=== PATIENT | male | born 1975 | race African-American/Black ===

== ENCOUNTER 2019-03-06 14:18 | Emergency (ER) | payer MEDICAID, OTHER ==
[~2019-03-06] VITALS: Ht 195.6 cm; Wt 133.8 kg
--- NOTE | 2019-03-06 14:35 | NUR ---
PATIENT IS AWAKE AND ALERT. PLACED IN A ROOM NEAR NURSES STATION. SECURITY WAS AT BEDSIDE WITH METAL DETECTOR...PATIENTS BELT TAKEN AND SECURED. CALLED FOR SITTER.
[2019-03-06 15:10] LABS: BASOPHILS # (AUTO) 0.1 K/uL (0.0-8.0); BASOPHILS % (AUTO) 1.1 % (0.0-2.0); EOSINOPHILS # (AUTO) 0.1 K/uL (0.0-0.7); EOSINOPHILS % (AUTO) 1.6 % (0.0-7.0); HEMATOCRIT 41.6 % (36.7-47.1); HEMOGLOBIN 13.7 g/dL (12.5-16.3); LYMPHOCYTES # (AUTO) 1.8 K/uL (20.0-40.0); LYMPHOCYTES % (AUTO) 23.1 % (20.5-51.5); MEAN CORPUSCULAR HEMOGLOBIN 28.5 uug (23.8-33.4); MEAN CORPUSCULAR HGB CONC 33 g/dL (32.5-36.3); MEAN CORPUSCULAR VOLUME 86.1 fL (73.0-96.2); MONOCYTES # (AUTO) 0.4 K/uL (2.0-10.0); MONOCYTES % (AUTO) 4.9 % (0.0-11.0); NEUTROPHILS # (AUTO) 5.3 K/uL (1.8-8.9); NEUTROPHILS % (AUTO) 69.3 % (38.5-71.5); PLATELET COUNT (AUTO) 196 K/uL (152-348); RED BLOOD CELL COUNT(AUTO) 4.83 MIL/uL (4.06-5.63); WHITE BLOOD COUNT (AUTO) 7.7 K/uL (3.6-10.2)
[2019-03-06 15:18] LABS: CARBON DIOXIDE 31 mmol/L (21-32); CHLORIDE 101 mmol/L (98-107); CREATININE 1.3 mg/dL (0.6-1.3); GLUCOSE 98 mg/dL (74-106); POTASSIUM 4.1 mmol/L (3.5-5.1); UREA NITROGEN, BLOOD 16 mg/dL (7-18)
[2019-03-06 15:24] LABS: ALANINE AMINOTRANSFERASE 38 U/L (16-63); ALKALINE PHOSPHATASE 78 U/L (50-136); ASPARTATE AMINOTRANSFERASE 22 U/L (15-37); BILIRUBIN,DIRECT 0.1 mg/dL (0.0-0.2); BILIRUBIN,TOTAL 0.3 mg/dL (0.2-1.0); TOTAL PROTEIN, SERUM 7.8 g/dL (6.4-8.2)
[2019-03-06 15:25] LABS: ACETAMINOPHEN < 2.0 ug/mL (10-30)
[2019-03-06 15:26] LABS: ETHANOL < 3 MG/DL (0-0)
--- NOTE | 2019-03-06 15:46 | NUR ---
SITTER AT BEDSIDE. PATIENT IS AWAKE AND ALERT, EATING A SANDWICH
--- NOTE | 2019-03-06 16:18 | NUR ---
WAS TOLD BY CRISIS TEAM THAT PATIENT IS TO GO TO [facility] FOR PSYCHIATRIC INTERVENTION.
--- NOTE | 2019-03-06 16:22 | NUR ---
I CALLED [facility] INTAKE TO PLACE THIS PATIENT AND FAXED NECESSARY PAPERWORK THEY NEEDED
--- NOTE | 2019-03-06 16:46 | NUR ---
AWAITING REVIEW AND PLACEMENT FROM [facility]. PATIENT ATE ANOTHER SANDWICH AND DRANK JUICE.
[2019-03-06 17:09] LABS: *BILIRUBIN,URIN NEGATIVE (NEGATIVE); *BLOOD, URINE NEGATIVE (NEGATIVE); *CLARITY,URINE CLEAR (CLEAR); *COLOR,URINE YELLOW (YELLOW); *KETONES,URINE NEGATIVE (NEGATIVE); *UROBILINOGEN,URINE 0.2 E.U./dl (NORMAL); LEUKOCYTE ESTERASE ,URINE NEGATIVE (NEGATIVE); NITRITE, URINE NEGATIVE (NEGATIVE); UGLUCOSE NEGATIVE (NEGATIVE)
--- NOTE | 2019-03-06 17:22 | NUR ---
[facility] STAFF STATE THEY ARE STILL REVIEWING THIS CASE... PATIENT ATE DINNER.
[2019-03-06 17:23] LABS: *AMPHETAMINE, URINE NEGATIVE (NEGATIVE); *BARBITURATE, URINE NEGATIVE (NEGATIVE); *CANNABINOID, URINE NEGATIVE (NEGATIVE); *COCCAINE, URINE NEGATIVE (NEGATIVE); *OPIATE, URINE NEGATIVE (NEGATIVE); *PHENCYCLIDINE SCREEN,URINE NEGATIVE (NEGATIVE)
--- NOTE | 2019-03-06 19:04 | NUR ---
HAND OFF REPORT GIVEN TO MICHAEL VIRK
--- NOTE | 2019-03-06 19:13 | NUR ---
ASSUMED CARE OF PATIENT. NO ACUTE DISTRESS NOTED. NO SITTER AVAILABLE PER NURSING OFFICE ( INSTRUMENT LENS INSPECTOR JENNY). SECURITY CALLED FOR LEROY SINCE THE PATIENT IS CONSTANTLY ATTEMPTING TO LEAVE HIS ROOM AND IS AN ELOPEMENT RISK.
--- NOTE | 2019-03-06 20:10 | NUR ---
Patient endorsed that he would like to leave. ER MD is aware and states since the patient is not on a hold and is a voluntary admit to psych, he is clear to leave. patient was given verbal ACI as he did not want to wait for MD documentation. Patient d/c home in stable condition. All belongings with patient. Ambulated with stable gait.
[2019-03-06 20:12] VITALS: BP 131/78
== END 2019-03-06 20:12 | disposition home or self-care (01) ==
LOC: ER 14:18
DX: Z04.6 Encounter for general psychiatric examination, requested by authority (principal); R45.851 Suicidal ideations
CPT/HCPCS: 36415; 80048; 80076; 80307; 81001; 85025; 99283; G0480 ×2; G0481; A4663

== ENCOUNTER 2019-06-02 13:52 | Inpatient (IN) | payer BC, MEDICAID, OTHER ==
[~2019-06-02] VITALS: Ht 195.6 cm; Wt 130.6 kg
[2019-06-02] MEDS ORDERED: LORAZEPAM 0.5 MG TABLET PO ONE (14:30)
[2019-06-02] MEDS ORDERED: LORAZEPAM 1 MG TABLET ONE (14:35)
[2019-06-02 14:55] LABS: BASOPHILS # (AUTO) 0.1 K/uL (0.0-8.0); BASOPHILS % (AUTO) 0.6 % (0.0-2.0); EOSINOPHILS % (AUTO) 0.1 % (0.0-7.0); HEMATOCRIT 40.9 % (36.7-47.1); HEMOGLOBIN 13.6 g/dL (12.5-16.3); LYMPHOCYTES # (AUTO) 1.4 K/uL (20.0-40.0); LYMPHOCYTES % (AUTO) 10.3 % (20.5-51.5); MEAN CORPUSCULAR HEMOGLOBIN 28.3 uug (23.8-33.4); MEAN CORPUSCULAR HGB CONC 33 g/dL (32.5-36.3); MONOCYTES # (AUTO) 0.9 K/uL (2.0-10.0); MONOCYTES % (AUTO) 6.6 % (0.0-11.0); NEUTROPHILS # (AUTO) 10.9 K/uL (1.8-8.9); NEUTROPHILS % (AUTO) 82.4 % (38.5-71.5); PLATELET COUNT (AUTO) 176 K/uL (152-348); RED BLOOD CELL COUNT(AUTO) 4.82 MIL/uL (4.06-5.63); WHITE BLOOD COUNT (AUTO) 13.2 K/uL (3.6-10.2)
[2019-06-02 14:57] LABS: BILIRUBIN,DIRECT 0.1 mg/dL (0.0-0.2); BILIRUBIN,TOTAL 0.5 mg/dL (0.2-1.0); POTASSIUM 3.8 mmol/L (3.5-5.1); TOTAL PROTEIN, SERUM 8.2 g/dL (6.4-8.2)
[2019-06-02 14:58] LABS: CREATININE 1.2 mg/dL (0.6-1.3)
[2019-06-02] MEDS ORDERED: LORA-258 PO (15:07)
[2019-06-02] MEDS ORDERED: QUET400T PO (15:07)
[2019-06-02] MEDS ORDERED: BUPR150T5 PO (15:07)
[2019-06-02] MEDS ORDERED: QUET200T PO (15:07)
[2019-06-02 16:32] LABS: *AMPHETAMINE, URINE POSITIVE (NEGATIVE); *BARBITURATE, URINE NEGATIVE (NEGATIVE); *CANNABINOID, URINE NEGATIVE (NEGATIVE); *COCCAINE, URINE NEGATIVE (NEGATIVE); *OPIATE, URINE NEGATIVE (NEGATIVE); *PHENCYCLIDINE SCREEN,URINE NEGATIVE (NEGATIVE)
[2019-06-02] MEDS ORDERED: ASPIRIN EC 325 MG TABLET.DR PO SCH (17:00)
[2019-06-02] MEDS ORDERED: ASPIRIN 325 MG TABLET ONE (17:02)
[2019-06-02] MEDS ORDERED: NITROGLYCERIN 0.4 MG/TAB BOTTLE SL ONE ×2 (17:24→17:30)
--- NOTE | 2019-06-02 17:31 | NUR ---
2nd dose of Nitro 0.4 SL given per pt pain is 8/10, and not changed from 1st dose.
--- NOTE | 2019-06-02 17:38 | NUR ---
#rd dose of nitro 0.4 mg given, pt states chest pain is still 8/10.
[2019-06-02] MEDS ORDERED: HYDROCODONE/APAP 5-325MG TABLET PO ONE (18:00)
[2019-06-02] MEDS ORDERED: NITROGLYCERIN OINT 1 GM PACKET TP ONE ×2 (18:00→18:03)
--- NOTE | 2019-06-02 18:01 | NUR ---
Pt is yelling at staff to come to room then becomes verbally abusive using valger words. Called hospital security to stand by for safety.
[2019-06-02] MEDS ORDERED: HYDROCODONE/APAP 5-325MG TABLET ONE (18:03)
--- NOTE | 2019-06-02 18:07 | NUR ---
Pt refused 2nd EKG and SL, as well as Nitro paste. Dr Rouse made aware.
--- NOTE | 2019-06-02 18:10 | NUR ---
1 to 1 security at the bedside.
--- NOTE | 2019-06-02 19:00 | NUR ---
PT OK TO ADMIT TO TELE RM (PENDING) DX: CHEST PAIN UNDER AARON 1ON1 SITTER AT BEDSIDE RECEIVED HAND OFF AND SBAR FR OUTGOING DAY SHIFT RN
--- NOTE | 2019-06-02 19:56 | NUR ---
HAND OFF AND SBAR GIVEN TO GABY VIRK
--- NOTE | 2019-06-02 21:11 | NUR ---
PT TO TRANSPORT TO TELE PT REFUSED IV INSERTION AT THIS TIME ERMD AWARE NAD RA KEPT WARM DR AND COMFORTABLE [id number] AT BEDSIDE
[2019-06-02 21:30] VITALS: BP 140/76
--- NOTE | 2019-06-02 22:00 | NUR ---
Pt received already in bed at around 2130. Sitter at the door, per patient's request. Pt is AO x 4. Verbally responsive. No skin issues. Vital signs taken and recorded, refused VS to be taken by sitter. RN took VS. All belongings accounted for. Dressed patient in hospital gown. Assessed skin, no skin issues. Informed him of the safety protocols hospitals have for Suicidal patients, no wires in the room. Pt adamantly requesting for phone, per sitter, he will be at bedside when pt uses phone. RN agreed, on condition that patient agrees to verbal contract of safety. Per patient, he does not have suicidal ideation anymore or any plan to do so. He just really need to talk to somebody about his brother passing away 3 weeks ago, and another friend dying a few nights ago. Denies any health history. complains of 4/10 pain. Asked him about chest pain, and he said that he has it intermittently, and not so much at this time. Telemetry monitoring started. Sinus rhythm on tele. Pt was complaining of multiple IV pokes from prior experience, offered male expert IV nurses, but refused. agreed to have RN assigned try. RN tried to insert IV 2x, unable. Informed him that we have multiple nurses in the floor who can assist him in starting an IV, but refused all male staff. Market Development Trainer notified. Awaiting for supervisor wound to come to floor. Pt is stable in time being, but being very needy of RN, refuses help from other staff, and intent on working with RN only. RN clearly sets boundaries, but patient is starting to be manipulative. States.: "If you can't help me, I'll just sleep, I don't need this." Sitter remains monitoring patient for safety. All needs attended, food and multiple juice drinks provided. Will limit pt visits.
[2019-06-02] MEDS ORDERED: MAGNESIUM HYDROXIDE 30 ML LIQUID UDC PO PRN (22:15)
[2019-06-02] MEDS: ENOXAPARIN SODIUM 40 MG/0.4 ML DISP.SYRIN SQ SCH (22:15)
[2019-06-02] MEDS ORDERED: ACETAMINOPHEN 325 MG TABLET PO PRN (22:15)
[2019-06-02] MEDS ORDERED: ZOLPIDEM 5 MG TABLET PO PRN (22:15)
[2019-06-02] MEDS ORDERED: ONDANSETRON 4 MG/2 ML VIAL IV PRN (22:15)
[2019-06-02] MEDS ORDERED: HYDROCODONE/APAP 5-325MG TABLET PO PRN (22:15)
[2019-06-02] MEDS ORDERED: Z GUARD REMEDY PASTE 57 GM TUBE TOP PRN (22:15)
--- NOTE | 2019-06-02 22:30 | NUR ---
RN loader operator supervisor arrived on floor, and went to patient's room. Pt allowed both nurses to continue care with sitter overseeing. RN Sup inserted IV, but unable to. Male charge nurse, RN school lunch monitor, and PICC line nurse came over to try and help, but all were refused. Pt was finally convinced to have a female ER nurse try. Awaiting for ER nurse on the floor.
--- NOTE | 2019-06-03 00:30 | NUR ---
At around 0000, Female ER nurse arrived, patient appears displeased that ER nurse is present, but allows her to try. RN supervisor cloth winding, primary RN and ER nurse are being overseen by sitter. After first attempt, patient started talking with a condescending and doubting tone, but allows second attempt. After insertion, patient's mood changed and is thankful for help. However, after other nurses left, patient wanted the curtains closed as primary RN hooks him up to the fluids. After closing curtain, pt started to talk in a weird voice and starts staring at RN. As RN was reinforcing IV, pt start to put other hand closer. RN dawna away and all needs were attended and curtain opened to sitter. Informed sitter that for medical needs, just ask for help. Patient is made aware that sitter has to always observe him at all times for his safety.
[2019-06-03] MEDS: MORPHINE SULFATE 2 MG/1 ML DISP.SYRIN IV PRN ×2 (01:15→15:16)
[2019-06-03] MEDS: IV NS 1000 ML 1,000 ML IV PRN (01:15)
--- NOTE | 2019-06-03 01:30 | NUR ---
Pt was off tele, RN attending to other needs and informed sitter to check on it and replace leads. Pt started refusing sitter's help and demanding RN's attention again. RN informed sitter that she will be there as soon as she is finished with other patients. After finishing tasks, RN came to the room. Pt immediately requested to draw the curtains, and put his hand inside the blanket. During this time, RN tried to explain the roles of sitters, aides and RN. Informed him that they are allowed to do the things that he needs like put on the telebox, or fetch his food and drinks. For continuity of care, care cannot be interrupted if RN is busy but other staff is able to do it.He needs to allow other people to take care of him, not just the RN. Pt would not hear it, and says: "Im fine I am leaving anyway". RN tried to explain reason for hospitalization and monitoring on telemetry. Pt replied, no I am fine. RN asked if what he meant was he wants to leave against medical advice now, patient said no, I will go in the morning. Pt said, I am tired, leave me alone. Respected patient's wishes and left.
--- NOTE | 2019-06-03 01:40 | NUR ---
RN debone processing supervisor notified of patient's telebox refusal. Yoel Valadez DNP also notified, with no new orders.
--- NOTE | 2019-06-03 01:45 | NUR ---
Eliane came to RN to report that patient is being verbally abusive and sexually inappropriate. RN retread supervisor notified and security was called to reinforce rules and regulations to patient. Security persons spoke to patient who agreed to stop behavior and respect nurses caring for him.
--- NOTE | 2019-06-03 02:30 | NUR ---
No further behaviors noted, pt still awake, talking to himself.
--- NOTE | 2019-06-03 04:30 | NUR ---
Pt still awake. RN checked in with patient regarding his pain status. Pt want RN to close the curtains and informed patient that sitter has to be present in the room, patient upset and stated that he doesn't know why these people are here and why he was visited by 2 security guards. Informed him that everyone is just doing their job to keep him compliant with facility protocols for his own safety. Pt noted with peripheral IV removed. RN asked patient how come it's off, patient started asking RN to close curtain again. Rn became firm and reinforced rules. Pt said he doesnt want to hear anymore and would like to rest. Again, respected patient's wishes and had sitter monitor patient.
--- NOTE | 2019-06-03 06:50 | NUR ---
Per sitter, patient slept shortly after RN left. Patient woke up just now, offered AM meds refused. Lab also came by, patient responded: " You can do it girl, you on my side". Risks and benefits explained for medication refusal, still refused. Will endorse behavior accordingly.
[2019-06-03] MEDS: PANTOPRAZOLE SODIUM 40 MG TABLET.DR PO SCH (06:53)
--- NOTE | 2019-06-03 07:44 | NUR ---
Nurse Notes: received report from the night milagros Estrada RN, patient is without a hep lock, nurse tried, ER nurse placed it during the night. the patient pulled the IV site out. monitor technician sinus rhythm.
[2019-06-03 07:45] LABS: BASOPHILS % (AUTO) 0.1 % (0.0-2.0); EOSINOPHILS % (AUTO) 0.1 % (0.0-7.0); HEMATOCRIT 38.8 % (36.7-47.1); HEMOGLOBIN 12.8 g/dL (12.5-16.3); LYMPHOCYTES # (AUTO) 1.3 K/uL (20.0-40.0); LYMPHOCYTES % (AUTO) 7.7 % (20.5-51.5); MEAN CORPUSCULAR HEMOGLOBIN 28.3 uug (23.8-33.4); MEAN CORPUSCULAR HGB CONC 33 g/dL (32.5-36.3); MEAN CORPUSCULAR VOLUME 85.6 fL (73.0-96.2); MONOCYTES # (AUTO) 1.3 K/uL (2.0-10.0); MONOCYTES % (AUTO) 7.4 % (0.0-11.0); NEUTROPHILS # (AUTO) 14.5 K/uL (1.8-8.9); NEUTROPHILS % (AUTO) 84.7 % (38.5-71.5); PLATELET COUNT (AUTO) 163 K/uL (152-348); RED BLOOD CELL COUNT(AUTO) 4.53 MIL/uL (4.06-5.63)
[2019-06-03 07:57] LABS: WHITE BLOOD COUNT (AUTO) 17.1 K/uL (3.6-10.2)
[2019-06-03 08:11] LABS: CREATININE 1.2 mg/dL (0.6-1.3); MAGNESIUM 1.9 mg/dL (1.8-2.4); PHOSPHOROUS 2.5 mg/dL (2.5-4.9)
[2019-06-03 09:11] LABS: THYROID STIMULATING HORMONE 0.938 mIU/mL (0.358-3.740)
[2019-06-03 11:02] VITALS: BP 121/79
[2019-06-03] MEDS ORDERED: LORAZEPAM 0.5 MG TABLET PO PRN (11:30)
[2019-06-03] MEDS ORDERED: NITROGLYCERIN 0.4 MG/TAB BOTTLE SL PRN (11:30)
[2019-06-03] MEDS: ASPIRIN EC 81 MG TABLET.DR PO SCH (11:51)
[2019-06-03] MEDS: LISINOPRIL 5 MG TABLET PO SCH (11:53)
[2019-06-03] MEDS: METOPROLOL TARTRATE 25 MG TABLET PO SCH ×2 (11:53→21:45)
[2019-06-03 15:00] VITALS: BP 141/66
[2019-06-03 15:39] VITALS: BP 141/66
[2019-06-03] MEDS: buPROPion SR 150 MG TABLET.SA PO SCH (17:00)
--- NOTE | 2019-06-03 18:42 | NUR ---
Nurse Notes: IV was restarted around 1500, left forearm, patient was medicated with Morphine 2 mg IV, patient was able to shower, IV site was covered with plastic during shower, Patient is refusing psych medications, Art FOOD SERVICE CLERK was called, and ordering psych consult. IV is infusing at 75 cc per hour.
--- NOTE | 2019-06-03 18:59 | NUR ---
Nurse Notes: psych floor called, stated to fax facesheet of patient, spoke with Francisco J, patient needs psych consult. Patent is refusing his psych medications.
[2019-06-03] MEDS: ENOXAPARIN SODIUM 40 MG/0.4 ML DISP.SYRIN SQ SCH (21:00)
[2019-06-03 21:37] VITALS: BP 124/93
[2019-06-03] MEDS: ATORVASTATIN 10 MG TABLET PO SCH (21:44)
[2019-06-03] MEDS: QUETIAPINE FUMARATE 200 MG TABLET PO SCH (21:44)
[2019-06-04 05:13] VITALS: BP 133/74
[2019-06-04] MEDS: PANTOPRAZOLE SODIUM 40 MG TABLET.DR PO SCH (06:36)
[2019-06-04 06:56] LABS: BASOPHILS % (AUTO) 0.4 % (0.0-2.0); EOSINOPHILS # (AUTO) 0.2 K/uL (0.0-0.7); EOSINOPHILS % (AUTO) 1.3 % (0.0-7.0); HEMATOCRIT 40.4 % (36.7-47.1); HEMOGLOBIN 13.2 g/dL (12.5-16.3); LYMPHOCYTES # (AUTO) 1.7 K/uL (20.0-40.0); LYMPHOCYTES % (AUTO) 14.6 % (20.5-51.5); MEAN CORPUSCULAR HEMOGLOBIN 28.2 uug (23.8-33.4); MEAN CORPUSCULAR HGB CONC 33 g/dL (32.5-36.3); MEAN CORPUSCULAR VOLUME 86.5 fL (73.0-96.2); MONOCYTES # (AUTO) 0.9 K/uL (2.0-10.0); MONOCYTES % (AUTO) 8.2 % (0.0-11.0); NEUTROPHILS # (AUTO) 8.7 K/uL (1.8-8.9); NEUTROPHILS % (AUTO) 75.5 % (38.5-71.5); PLATELET COUNT (AUTO) 152 K/uL (152-348); RED BLOOD CELL COUNT(AUTO) 4.67 MIL/uL (4.06-5.63); WHITE BLOOD COUNT (AUTO) 11.5 K/uL (3.6-10.2)
[2019-06-04 07:05] LABS: CREATININE 1.1 mg/dL (0.6-1.3); PHOSPHOROUS 2.9 mg/dL (2.5-4.9)
--- NOTE | 2019-06-04 08:00 | NUR ---
RECEIVED PT OUT OF HIS ROOM WALKING AROUND THE UNIT. PT ALERT AND ORIENTED X4. NO ACUTE DISTRESS OR SOB NOTED. PT COOPERATIVE AND PLEASANT. BED IS LOCKED AND IN LOW POSITION. SAFETY MEASURES OBSERVED AND IMPLEMENTED. WILL CONTINUE TO MONITOR FOR SAFETY AND COMFORT.
[2019-06-04] MEDS: QUETIAPINE FUMARATE 200 MG TABLET PO SCH ×2 (09:00→21:00)
[2019-06-04] MEDS: buPROPion SR 150 MG TABLET.SA PO SCH (09:00)
[2019-06-04] MEDS: METOPROLOL TARTRATE 25 MG TABLET PO SCH ×2 (09:00→21:00)
[2019-06-04] MEDS: LISINOPRIL 5 MG TABLET PO SCH (09:00)
[2019-06-04] MEDS: ASPIRIN EC 81 MG TABLET.DR PO SCH (09:18)
[2019-06-04 11:46] VITALS: BP 135/66
--- NOTE | 2019-06-04 13:35 | NUR ---
PT REFUSED ECHO. PT STATED THAT HE FEELS UNCOMFORTABLE HAVING A MALE A TECH.
[2019-06-04 15:52] VITALS: BP 127/75
[2019-06-04 16:14] LABS: *BILIRUBIN,URIN NEGATIVE (NEGATIVE); *BLOOD, URINE NEGATIVE (NEGATIVE); *CLARITY,URINE CLEAR (CLEAR); *COLOR,URINE YELLOW (YELLOW); *KETONES,URINE NEGATIVE (NEGATIVE); *UROBILINOGEN,URINE 0.2 E.U./dl (NORMAL); LEUKOCYTE ESTERASE ,URINE NEGATIVE (NEGATIVE); NITRITE, URINE NEGATIVE (NEGATIVE); PH,URINE 5.5 (5.0-8.0); UGLUCOSE NEGATIVE (NEGATIVE)
[2019-06-04] MEDS: buPROPion 100 MG TABLET PO SCH (17:00)
[2019-06-04] MEDS ORDERED: buPROPion 100 MG TABLET PO SCH (17:00)
--- NOTE | 2019-06-04 18:00 | NUR ---
PT RESTING COMFORTABLY. NO ACUTE DISTRESS OR SOB NOTED. PT ALERT AND ORIENTED X3. PT PLEASANT AND COOPERATIVE. CALL LIGHT WITHIN REACH. BED LOCKED AND IN LOW POSITION. WILL GIVE REPORT ACCORDINGLY.
[2019-06-04 20:45] VITALS: BP 136/84
[2019-06-04] MEDS: ATORVASTATIN 10 MG TABLET PO SCH (21:00)
[2019-06-04] MEDS: ENOXAPARIN SODIUM 40 MG/0.4 ML DISP.SYRIN SQ SCH (21:00)
[2019-06-04] MEDS: IV NS 1000 ML 1,000 ML IV PRN (21:04)
--- NOTE | 2019-06-04 21:17 | NUR ---
PT REFUSED ALL THE MEDICATIONS STATING THAT : "IT WILL MESS UP MY KIDNEYS". ALSO REFUSED THE LOVENOX SHOT STATING THAT, "I DONT NEED TO BE POKED, I AM FINE". PATIENT IN BED NOW, ALLOWED HIM TO REST.
[2019-06-05 04:30] VITALS: BP 130/70
[2019-06-05] MEDS: PANTOPRAZOLE SODIUM 40 MG TABLET.DR PO SCH (06:58)
--- NOTE | 2019-06-05 06:58 | NUR ---
PT SLEPT WELL THROUGH THE NIGHT, NO FURTHER BEHAVIORAL ISSUES, EXCEPT FOR CONTINUED NON COMPLIANCE. PT INITIALLY WANTED TO GO AMA. BUT CHANGED HIS MIND. ACCORDING TO HIM, HE DOES NOT WANT UNNECESSARY MEDICATIONS, HENCE DECLINING ZOFRAN IN AM. HE IS WILLING TO DO THE ECHO, BUT DOES NOT WANT MALE FERTILIZER MIXER. NO CHANGES OVERNIGHT, STABLE. WILL ENDORSE ACCORDINGLY
--- NOTE | 2019-06-05 08:06 | NUR ---
RECEIVED PT IN ROOM. PT ALERT AND ORIENTED X4. NO ACUTE DISTRESS OR SOB NOTED. PT COOPERATIVE AND PLEASANT. BED IS LOCKED AND IN LOW POSITION. SAFETY MEASURES OBSERVED AND IMPLEMENTED. WILL CONTINUE TO MONITOR FOR SAFETY AND COMFORT.
[2019-06-05] MEDS: QUETIAPINE FUMARATE 200 MG TABLET PO SCH (09:00)
[2019-06-05] MEDS: METOPROLOL TARTRATE 25 MG TABLET PO SCH (09:00)
[2019-06-05] MEDS: LISINOPRIL 5 MG TABLET PO SCH (09:00)
[2019-06-05] MEDS: buPROPion 100 MG TABLET PO SCH (09:00)
[2019-06-05] MEDS: ASPIRIN EC 81 MG TABLET.DR PO SCH (09:26)
[2019-06-05 12:00] VITALS: BP 137/74
[2019-06-05] MEDS ORDERED: BUPR100T13 PO (12:12)
[2019-06-05] MEDS ORDERED: METO25TA6 PO (12:12)
[2019-06-05] MEDS ORDERED: LISI-607 PO (12:12)
--- NOTE | 2019-06-05 12:25 | NUR ---
DISCHARGE ORDER RECEIVED PENDING CARDIOLOGY CLEARANCE. PT AWARE. ATTENDING ANESTHESIOLOGIST AWARE. PT ALERT AND ORIENTED X3. NO ACUTE DISTRESS OR SOB NOTED. WILL CONTINUE TO MONITOR FOR SAFETY AND COMFORT.
--- NOTE | 2019-06-05 13:30 | NUR ---
PT LEFT FACILITY AMA WITHOUT SIGNING AMA FORM. PT REMOVED IV BY HIMSELF AND GAVE INTACT CATHETER TO ASSISTANT. DR SALMON AWARE, COMPUTER DESIGNER REBECCA AWARE, IP LITIGATION PARALEGAL MICHELLE AWARE, CHARGE NURSE NINA AWARE, NURSING ICU NURSE JOHANA AWARE.
== END 2019-06-05 13:20 | disposition left against medical advice (07) | DRG 203 ==
LOC: ER 13:57 → TELE3 20:59 → MEDSURG3 06-03 18:32
PROVIDERS: ADMIT Hospitalist; ATTEND Hospitalist
DX: R07.89 Other chest pain (principal); F25.9 Schizoaffective disorder, unspecified; R00.0 Tachycardia, unspecified; E66.9 Obesity, unspecified; D72.829 Elevated white blood cell count, unspecified; F15.10 Other stimulant abuse, uncomplicated; F43.10 Post-traumatic stress disorder, unspecified; Z79.899 Other long term (current) drug therapy; Z91.14 Patient's other noncompliance with medication regimen; Z68.34 Body mass index [BMI] 34.0-34.9, adult; Z76.5 Malingerer [conscious simulation]; Z91.19 Patient's noncompliance with other medical treatment and regimen
CPT/HCPCS: 36415; 70030-TC; 71045; 80307; 83735; 84100; 84443; 85025; 85730; 87086; 93005; A4663; G0378; G0480; J2270; J2405

== ENCOUNTER 2019-07-30 02:37 | Emergency (ER) | payer BC ==
[~2019-07-30] VITALS: Ht 195.6 cm; Wt 131.5 kg
--- NOTE | 2019-07-30 02:50 | NUR ---
Dr. Christian at bedside for MSE
--- NOTE | 2019-07-30 02:54 | NUR ---
Patient ambulating with steady gait. A&O x4. c/o sharp chest pain that radiates to the back 8/10 on the pain scale. Patient states pain started 45 min COORDINATOR CARDIOPULMONARY SERVICES. Patient also states that he took x1 dose of Nitro SL COORDINATOR CARDIOPULMONARY SERVICES. Speech is clear and able to make needs known / follow commands. Breathing even and unlabored. Denies any cough, SOB, Dizziness, blurred vision. Denies any / GI discomfort.
[2019-07-30] MEDS ORDERED: NITROGLYCERIN 0.4 MG/TAB BOTTLE SL ONE ×2 (03:00→03:07)
--- NOTE | 2019-07-30 03:16 | NUR ---
Patients VS prior to giving Nitro SL BP: 146 /60 P:105 RR:18 O2:97% on RA
--- NOTE | 2019-07-30 03:16 | NUR ---
2nd dose of Nitro SL given per MD orders d/t patient stating chest pain unrelieved. 8/10 on the pain scale per patient
[2019-07-30] MEDS ORDERED: ASPIRIN 325 MG TABLET ONE (03:25)
--- NOTE | 2019-07-30 03:26 | NUR ---
Patient states CP "better" now. 7/10 on the pain scale. 3rd dose of Nitro SL given VS as follows: BP: 145/83 P: 102 RR:18 O2 sat: 97% on RA
[2019-07-30] MEDS ORDERED: ASPIRIN 325 MG TABLET PO ONE (03:30)
--- NOTE | 2019-07-30 03:31 | NUR ---
Patient states CP "still the same". 7/[address] on the pain scale. Dr. Christian made aware. No new orders received
[2019-07-30 03:33] LABS: BASOPHILS % (AUTO) 0.4 % (0.0-2.0); EOSINOPHILS # (AUTO) 0.1 K/uL (0.0-0.7); EOSINOPHILS % (AUTO) 0.7 % (0.0-7.0); HEMATOCRIT 39.8 % (36.7-47.1); HEMOGLOBIN 13.3 g/dL (12.5-16.3); LYMPHOCYTES # (AUTO) 1.9 K/uL (20.0-40.0); LYMPHOCYTES % (AUTO) 27.2 % (20.5-51.5); MEAN CORPUSCULAR HGB CONC 34 g/dL (32.5-36.3); MEAN CORPUSCULAR VOLUME 83.7 fL (73.0-96.2); MONOCYTES # (AUTO) 0.5 K/uL (2.0-10.0); MONOCYTES % (AUTO) 6.6 % (0.0-11.0); NEUTROPHILS # (AUTO) 4.6 K/uL (1.8-8.9); NEUTROPHILS % (AUTO) 65.1 % (38.5-71.5); PLATELET COUNT (AUTO) 248 K/uL (152-348); RED BLOOD CELL COUNT(AUTO) 4.75 MIL/uL (4.06-5.63)
[2019-07-30 03:39] LABS: CREATININE 1.2 mg/dL (0.6-1.3); POTASSIUM 3.8 mmol/L (3.5-5.1)
[2019-07-30 03:50] LABS: BILIRUBIN,DIRECT 0.1 mg/dL (0.0-0.2); BILIRUBIN,TOTAL 0.4 mg/dL (0.2-1.0); TOTAL PROTEIN, SERUM 8.1 g/dL (6.4-8.2)
--- NOTE | 2019-07-30 04:19 | NUR ---
Attempted to obtain VS. Patient declined. explained risks / benefits. Patient still declined. Dr. Christian made aware
--- NOTE | 2019-07-30 04:19 | NUR ---
Re-assessed patient's CP. Patient declined to answer. Patient does not want to answer any questions at this time
--- NOTE | 2019-07-30 05:15 | NUR ---
Patient declined repeat EKG. Dr. Christian at bedside explained risks / benefits, patient still declined
--- NOTE | 2019-07-30 05:31 | NUR ---
Patient does not wish to proceed with medical care recommended by Dr. Christian. Patient given information related to possible complications, up to and including , which could occur as a result of leaving the hospital at this time. Patient verbalizes understanding of risks involved due to leaving against medical advice. Patient has signed AMA form. Patient ambulating with steady gait. NAD noted
[2019-07-30 05:35] VITALS: BP 142/81
== END 2019-07-30 05:31 | disposition left against medical advice (07) ==
LOC: ER 02:40
DX: R07.89 Other chest pain (principal); R06.02 Shortness of breath; R11.10 Vomiting, unspecified; M25.512 Pain in left shoulder; Z79.899 Other long term (current) drug therapy
CPT/HCPCS: 36415; 70030-TC; 71045; 85025; 93005; A4663

== ENCOUNTER 2019-08-08 18:58 | Emergency (ER) | payer BC ==
[~2019-08-08] VITALS: Ht 195.6 cm; Wt 130.2 kg
--- NOTE | 2019-08-08 19:20 | NUR ---
PATIENT WAS MSE BY DR BARAHONA IN ROOM 03A.
[2019-08-08 19:39] LABS: BASOPHILS # (AUTO) 0.1 K/uL (0.0-8.0); BASOPHILS % (AUTO) 0.9 % (0.0-2.0); EOSINOPHILS # (AUTO) 0.2 K/uL (0.0-0.7); EOSINOPHILS % (AUTO) 3.5 % (0.0-7.0); HEMATOCRIT 41.1 % (36.7-47.1); HEMOGLOBIN 13.7 g/dL (12.5-16.3); LYMPHOCYTES % (AUTO) 43.3 % (20.5-51.5); MEAN CORPUSCULAR HEMOGLOBIN 28.4 uug (23.8-33.4); MEAN CORPUSCULAR HGB CONC 33 g/dL (32.5-36.3); MONOCYTES # (AUTO) 0.5 K/uL (2.0-10.0); MONOCYTES % (AUTO) 7.1 % (0.0-11.0); NEUTROPHILS # (AUTO) 3.1 K/uL (1.8-8.9); NEUTROPHILS % (AUTO) 45.2 % (38.5-71.5); PLATELET COUNT (AUTO) 243 K/uL (152-348); RED BLOOD CELL COUNT(AUTO) 4.83 MIL/uL (4.06-5.63); WHITE BLOOD COUNT (AUTO) 6.8 K/uL (3.6-10.2)
--- NOTE | 2019-08-08 19:39 | NUR ---
PATIENT REFUSED EKG. DR BARAHONA MADE AWARE.
[2019-08-08 19:54] LABS: ALANINE AMINOTRANSFERASE 53 U/L (16-63); ALKALINE PHOSPHATASE 107 U/L (50-136); ASPARTATE AMINOTRANSFERASE 41 U/L (15-37); BILIRUBIN,DIRECT 0.2 mg/dL (0.0-0.2); BILIRUBIN,TOTAL 0.4 mg/dL (0.2-1.0); CARBON DIOXIDE 24 mmol/L (21-32); CHLORIDE 103 mmol/L (98-107); CREATININE 1.3 mg/dL (0.6-1.3); GLUCOSE 92 mg/dL (74-106); POTASSIUM 3.7 mmol/L (3.5-5.1); TOTAL PROTEIN, SERUM 8.5 g/dL (6.4-8.2); UREA NITROGEN, BLOOD 18 mg/dL (7-18)
[2019-08-08 19:56] LABS: ACETAMINOPHEN < 2.0 ug/mL (10-30)
[2019-08-08 20:02] LABS: ETHANOL 43 MG/DL (0-0)
--- NOTE | 2019-08-08 20:14 | NUR ---
PATIENT WAS MEDICALLY CLEARED BY DR LOPEZ. SPANN FROM CRISIS TEAM CALLED WILL COME EVALUATE PATIENT.
--- NOTE | 2019-08-08 21:00 | NUR ---
Patient is resting comfortably in bed with eyes closed. 1 to 1 secuirty at bedside. Will continue to monitor patient safety
--- NOTE | 2019-08-08 21:15 | NUR ---
PATIENT WAS SEEN BY MARIA INES FROM CRISIS TEAM FOR EVAL AT BEDSIDE. PATIENT WAS NO PACED FOR HOLD. DR BARAHONA MADE AWARE.
--- NOTE | 2019-08-08 21:35 | NUR ---
RESOURCE GIVEN FOR MENTAL HEALTH. IF HIS SYMPTOMS RESUME AGAIN OR GET WORSE
[2019-08-08 21:45] VITALS: BP 118/74
--- NOTE | 2019-08-08 21:45 | NUR ---
Patient discharged to home in stable condition. Patient no c/o pain. Not verbalizing any SI at this time feels much better said he will follow up with PMD and resources given. Written and verbal after care instructions given. Patient verbalizes understanding of instructions. All belongings sent with patient.
== END 2019-08-08 21:45 | disposition home or self-care (01) ==
LOC: ER 18:58
DX: F32.9 Major depressive disorder, single episode, unspecified (principal); F25.9 Schizoaffective disorder, unspecified; F43.10 Post-traumatic stress disorder, unspecified
CPT/HCPCS: 99285; 36415; 71045; 80048; 80076; 80307; 80329; 85025; G0480; 93005; A4663

== ENCOUNTER 2019-11-15 21:41 | Inpatient (IN) | payer BC ==
[~2019-11-15] VITALS: Ht 195.6 cm; Wt 134.7 kg
[2019-11-15] MEDS ORDERED: NITR0.4T SL (21:49)
--- NOTE | 2019-11-15 21:50 | NUR ---
Dr. Cifuentes at bedside for MSE.
[2019-11-15] MEDS ORDERED: ASPIRIN 81 MG TAB.CHEW PO ONE (22:00)
[2019-11-15] MEDS ORDERED: HYDROCODONE/APAP 10-325 MG TABLET PO ONE (22:00)
[2019-11-15] MEDS ORDERED: NITROGLYCERIN OINT 1 GM PACKET TP ONE ×2 (22:00→22:09)
[2019-11-15] MEDS ORDERED: ONDANSETRON ODT 4 MG TAB.RAPDIS SL ONE (22:00)
[2019-11-15] MEDS ORDERED: NITROGLYCERIN 0.4 MG/TAB BOTTLE SL ONE ×2 (22:00→22:09)
[2019-11-15] MEDS ORDERED: ASPIRIN 81 MG TAB.CHEW ONE (22:08)
[2019-11-15] MEDS ORDERED: ONDANSETRON ODT 4 MG TAB.RAPDIS ONE ×2 (22:08→23:56)
[2019-11-15] MEDS ORDERED: HYDROCODONE/APAP 10-325 MG TABLET ONE ×2 (22:09→23:56)
--- NOTE | 2019-11-15 22:10 | NUR ---
Pt refused IV, made aware.
--- NOTE | 2019-11-15 22:11 | NUR ---
Xray at bedside.
[2019-11-15 22:15] LABS: BASOPHILS # (AUTO) 0.1 K/uL (0.0-8.0); BASOPHILS % (AUTO) 0.8 % (0.0-2.0); EOSINOPHILS % (AUTO) 0.5 % (0.0-7.0); HEMATOCRIT 39.2 % (36.7-47.1); HEMOGLOBIN 12.9 g/dL (12.5-16.3); LYMPHOCYTES # (AUTO) 1.2 K/uL (20.0-40.0); MEAN CORPUSCULAR HEMOGLOBIN 28.3 uug (23.8-33.4); MEAN CORPUSCULAR HGB CONC 33 g/dL (32.5-36.3); MONOCYTES # (AUTO) 0.4 K/uL (2.0-10.0); MONOCYTES % (AUTO) 5.7 % (0.0-11.0); NEUTROPHILS # (AUTO) 5.4 K/uL (1.8-8.9); PLATELET COUNT (AUTO) 202 K/uL (152-348); RED BLOOD CELL COUNT(AUTO) 4.56 MIL/uL (4.06-5.63); WHITE BLOOD COUNT (AUTO) 7.2 K/uL (3.6-10.2)
[2019-11-15 22:17] LABS: CREATININE 1.4 mg/dL (0.6-1.3); POTASSIUM 4.1 mmol/L (3.5-5.1)
[2019-11-15 22:30] LABS: BILIRUBIN,DIRECT 0.1 mg/dL (0.0-0.2); BILIRUBIN,TOTAL 0.2 mg/dL (0.2-1.0); TOTAL PROTEIN, SERUM 7.7 g/dL (6.4-8.2)
[2019-11-16] MEDS ORDERED: ONDANSETRON ODT 4 MG TAB.RAPDIS SL ONE
[2019-11-16] MEDS ORDERED: LABETALOL HCL 100 MG TABLET PO ONE (00:15)
[2019-11-16] MEDS ORDERED: LABETALOL HCL 100 MG TABLET ONE (00:15)
--- NOTE | 2019-11-16 01:25 | NUR ---
Dr. Cifuentes speaking with Dr. Bethea of [facility].
--- NOTE | 2019-11-16 01:40 | NUR ---
PT stated that he will refuse transfer to [facility]. notified.
--- NOTE | 2019-11-16 01:42 | NUR ---
Dr. Cifuentes on panel call with Bethel Joseph NP.
[2019-11-16] MEDS ORDERED: ACETAMINOPHEN 325 MG TABLET PO PRN (01:45)
[2019-11-16] MEDS ORDERED: Z GUARD REMEDY PASTE 57 GM TUBE TOP PRN (01:45)
[2019-11-16] MEDS ORDERED: ONDANSETRON 4 MG/2 ML VIAL IV PRN (01:45)
[2019-11-16] MEDS ORDERED: MAGNESIUM HYDROXIDE 30 ML LIQUID UDC PO PRN (01:45)
--- NOTE | 2019-11-16 01:52 | NUR ---
Dunia from [facility] called to ask for patient updates, informed her that patient has refused transfer and would like to stay here in the hospital.
--- NOTE | 2019-11-16 02:03 | NUR ---
Report given to Atiya VIRK Tele.
[2019-11-16 02:54] VITALS: BP 156/72
--- NOTE | 2019-11-16 03:38 | NUR ---
orders received from np. steven suarez to give one time only.
--- NOTE | 2019-11-16 03:40 | NUR ---
PATIENT C/O OF CHEST PAIN AND ATTEMPTED TO ADMINISTER NORCO 10. REPORTED TO ME THAT NORCO DOES NOT WORK. WILL CONTACT DR. Addendum: 11/16/19 at 0423 by GINO CERVANTES RN V/S WNL. NO S/S OF ACUTE DISTRESS NOTED. REPORTS THAT CHEST PAIN IS ON AND OFF. PAIN IS AT A LEVEL OF 8. RESTING AND WATCHING TV. EATING A TURKEY SANDWICH AND DRINKING APPLE JUICE, CRANBERRY JUICE, AND GRAPE JUICE.
[2019-11-16] MEDS ORDERED: HYDROCODONE/APAP 10-325 MG TABLET PO ONE ×2 (03:45)
--- NOTE | 2019-11-16 03:56 | NUR ---
DR. SHIRA ISLAS ORDERED MORPHINE 2MG IV X1 ONLY.
[2019-11-16] MEDS ORDERED: MORPHINE SULFATE 2 MG/1 ML DISP.SYRIN IV ONE (04:00)
[2019-11-16 04:04] VITALS: BP 151/74
--- NOTE | 2019-11-16 04:23 | NUR ---
RN WENT TO PATIENT TO ADMINISTER MORPHINE AND PATIENT'S PIV WAS PULLED OUT BY PATIENT. PATIENT REPORTED PIV CAME OUT WHILE WASHING HAND. PATIENT AGREED TO PLACE ANOTHER PIV IN LEFT ARM. WHEN VINNIE BERRY CAME IN HE CHANGED HIS MIND AND SAID, 'NEVER MIND I AM REFUSING THE IV TO BE PLACED, I WILL BE LEAVING THIS HOSPITAL MY COUSIN IS COMING TO PICK ME UP, I DO NOT NEED THE MORPHINE OR ANY PAIN MEDICATION.' WENT INTO ROOM TO HAVE PATIENT SIGN AMA PAPERWORK AND PATIENT THEN REPORTED THAT HE CHANGED HIS MIND AND WAS GOING TO WAIT TO SEE THE DOCTOR AND THEN LEAVE [facility].
[2019-11-16 06:43] LABS: BASOPHILS % (AUTO) 0.4 % (0.0-2.0); EOSINOPHILS # (AUTO) 0.1 K/uL (0.0-0.7); EOSINOPHILS % (AUTO) 1.4 % (0.0-7.0); HEMATOCRIT 37.4 % (36.7-47.1); HEMOGLOBIN 12.3 g/dL (12.5-16.3); LYMPHOCYTES # (AUTO) 2.3 K/uL (20.0-40.0); LYMPHOCYTES % (AUTO) 31.1 % (20.5-51.5); MEAN CORPUSCULAR HEMOGLOBIN 28.4 uug (23.8-33.4); MEAN CORPUSCULAR HGB CONC 33 g/dL (32.5-36.3); MEAN CORPUSCULAR VOLUME 86.3 fL (73.0-96.2); MONOCYTES # (AUTO) 0.6 K/uL (2.0-10.0); MONOCYTES % (AUTO) 7.4 % (0.0-11.0); NEUTROPHILS # (AUTO) 4.4 K/uL (1.8-8.9); NEUTROPHILS % (AUTO) 59.7 % (38.5-71.5); PLATELET COUNT (AUTO) 189 K/uL (152-348); RED BLOOD CELL COUNT(AUTO) 4.34 MIL/uL (4.06-5.63); WHITE BLOOD COUNT (AUTO) 7.4 K/uL (3.6-10.2)
[2019-11-16 07:00] LABS: CREATININE 1.3 mg/dL (0.6-1.3); MAGNESIUM 1.7 mg/dL (1.8-2.4); PHOSPHOROUS 3.7 mg/dL (2.5-4.9); POTASSIUM 3.6 mmol/L (3.5-5.1)
--- NOTE | 2019-11-16 07:10 | NUR ---
AWAKE ALERT AND WALKING IN AND OUT OF THE ROOM WITHOUT ANY SIGNS OF DISTRESS. STILL C/O IN AND AOUT CHEST PRESSURE PAIN. SR ON MONITOR
[2019-11-16 07:13] LABS: THYROID STIMULATING HORMONE 0.916 mIU/mL (0.358-3.740)
--- NOTE | 2019-11-16 08:58 | NUR ---
REFUSED LOVENOX DR ARRIAGA SPOKE WITH PATIENT DISCUSSED PLAN OF CARE SEE NOTES. AWAITING CARDIO CONSULT
[2019-11-16] MEDS ORDERED: NITROGLYCERIN 0.4 MG/TAB BOTTLE SL PRN (09:00)
[2019-11-16] MEDS ORDERED: ENOXAPARIN SODIUM 40 MG/0.4 ML DISP.SYRIN SQ SCH (09:00)
[2019-11-16] MEDS: MAGNESIUM SULFATE/D5W 100 ML IV SCH ×2 (09:30→10:30)
--- NOTE | 2019-11-16 11:20 | NUR ---
LEFT MIKEY CAMACHO AND LCSW NOTIFIED
--- NOTE | 2019-11-16 11:20 | NUR ---
SEEN BY DR ARRIAGA DISCUSSED PLAN OF CARE BUT PATIENT CONTINUE TO REFUSED MEDS
== END 2019-11-16 11:20 | disposition left against medical advice (07) | DRG 203 ==
LOC: ER 21:46 → TELE3 11-16 02:10
PROVIDERS: ADMIT Family Medicine; ATTEND Family Medicine
DX: M94.0 Chondrocostal junction syndrome [Tietze] (principal); E83.42 Hypomagnesemia; F32.9 Major depressive disorder, single episode, unspecified; F25.9 Schizoaffective disorder, unspecified; Z76.5 Malingerer [conscious simulation]
CPT/HCPCS: 36415; 70030-TC; 71045; 83735; 84100; 84443; 85025; 93005; A4663; G0378; J1650; J2270; Q0162

== ENCOUNTER 2023-01-19 12:43 | Emergency (ER) | payer BC, MEDICAID, OTHER ==
[~2023-01-19] VITALS: Ht 195.6 cm; Wt 133.8 kg
[~2023-01-19 12:43] MED LIST: NITR0.4T SL
[2023-01-19 12:48] VITALS: O2SAT 99
== END 2023-01-19 13:20 | disposition home or self-care (01) ==
LOC: ER 12:43
DX: M79.642 Pain in left hand (principal); Z88.8 Allergy status to other drugs, medicaments and biological substances; Z79.899 Other long term (current) drug therapy
CPT/HCPCS: A4663